=== PATIENT | female | born 1985 | race Caucasian/White ===

== ENCOUNTER 2022-02-04 18:24 | Inpatient (IN) ==
[2022-02-04] MEDS ORDERED: Azithromycin 500 MG in 0.9 % Sodium Chloride 250 ML IVPB PRN (22:11)
[2022-02-04] MEDS ORDERED: Naloxone 0.4 MG/ML INJ IVP PRN (22:11)
[2022-02-04] MEDS ORDERED: Ondansetron 4 MG/2 ML VIAL IVP PRN (22:11)
[2022-02-04] MEDS ORDERED: Penicillin G Potassium 5,000,000 UNIT in 0.9 % Sodium Chloride Mini Bag 100 ML IVPB ONE (22:11)
[2022-02-04] MEDS ORDERED: Metoclopramide 10 MG/2 ML VIAL IVP PRN (22:11)
[2022-02-04] MEDS ORDERED: Famotidine 20 MG/2 ML VIAL IVP PRN (22:11)
[2022-02-04] MEDS ORDERED: *HR* FentaNYL (PF) 100 MCG/2 ML VIAL IVP PRN (22:11)
[2022-02-04] MEDS ORDERED: hydrOXYzine pamoate 25 MG CAPSULE PO PRN (22:15)
[2022-02-04] MEDS ORDERED: *HR* FentaNYL (PF) 100 MCG/2 ML VIAL EP ONE (22:48)
[2022-02-04] MEDS ORDERED: Ropivacaine/PF 0.2% 20 ML VIAL EP ONE (22:48)
[2022-02-04] MEDS ORDERED: EPHEDrine sulfate 50 MG/10 ML VIAL IVP PRN (22:48)
[2022-02-04] MEDS ORDERED: Epidural Premix (fent/bupiv) 110 ML EP SCH (23:00)
[2022-02-04] MEDS: Ringers Solution, Lactated 1,000 ML IVC SCH (23:49)
[2022-02-05 00:13] LABS: Basophils % 0.2 %; Eosinophils % 0.2 %; Hematocrit 28.4 % (35.3-44.9); Hemoglobin 8.5 g/dL (11.5-15.4); Immature Granulocytes % 1.2 % (0-4); Lymphocytes # 1.5 K/mcL (0.6-4.6); Lymphocytes % 17.1 %; Mean Corpuscular HGB Conc 29.9 g/dL (31.6-35.5); Mean Corpuscular Hemoglobin 21.8 pg (28.0-33.3); Mean Corpuscular Volume 72.8 fL (83.0-100.0); Mean Platelet Volume 10.1 fL (9.4-12.4); Monocytes # 0.4 K/mcL (0.0-1.3); Monocytes % 4.9 %; Neutrophils # 6.9 K/mcL (1.6-8.9); Nucleated Red Blood Cells 0.4 /100 WBC (0); Platelet Count 282 K/mcL (140-400); Red Cell Distribution Width 17.8 % (11.5-14.5); Segmented Neutrophils % 76.4 %
[2022-02-05 00:22] LABS: Amphetamine Screen,Urine Negative ng/mL (Cutoff=1000); Barbiturate Screen,Urine Negative ng/mL (Cutoff=200); Benzodiazepines Screen,Urine Negative ng/mL (Cutoff=200); Cannabinoid Screen,Urine Negative ng/mL (Cutoff = 50); Cocaine Screen,Urine Negative ng/mL (Cutoff= 300); Opiate Screen,Urine Negative ng/mL (Cutoff=300); Phencyclidine Screen,Urine Negative ng/mL (Cutoff=25)
[2022-02-05 01:00] LABS: Rubella IgG Antibody POSITIVE (POSITIVE); Varicella Zoster IgG Antibody Positive
[2022-02-05] MEDS ORDERED: Oxytocin 30 UNIT/503 ML BAG IVC SCH ×2 (07:15→22:46)
[2022-02-05] MEDS: Penicillin G Potassium 2,500,000 UNIT/105 ML MLS IVPB SCH ×3 (09:08→17:56)
[2022-02-05 09:47] LABS: Hepatitis B Surface Antigen Nonreactive (Nonreactive)
[2022-02-05] MEDS: Ringers Solution, Lactated 1,000 ML IVC SCH (18:36)
[2022-02-05] MEDS ORDERED: Ibuprofen 600 MG TABLET PO ONE (20:07)
[2022-02-05] MEDS ORDERED: Benzocaine/Menthol 56 GM AEROSOL SPRAY TP PRN (22:46)
[2022-02-05] MEDS ORDERED: Lanolin 7 G OINT...G. TP PRN (22:46)
[2022-02-05] MEDS ORDERED: Measles/Mumps/Rubella Vacc 0.5 ML VIAL SQ PRN (22:46)
[2022-02-05] MEDS ORDERED: Ondansetron ODT 4 MG TAB.RAPDIS SL PRN (22:46)
[2022-02-06 07:13] LABS: Basophils % 0.2 %; Eosinophils % 0.3 %; Hematocrit 25.2 % (35.3-44.9); Hemoglobin 7.7 g/dL (11.5-15.4); Immature Granulocytes % 0.8 % (0-4); Lymphocytes # 1.5 K/mcL (0.6-4.6); Lymphocytes % 10.1 %; Mean Corpuscular HGB Conc 30.6 g/dL (31.6-35.5); Mean Platelet Volume 9.8 fL (9.4-12.4); Monocytes % 6.6 %; Neutrophils # 11.9 K/mcL (1.6-8.9); Nucleated Red Blood Cells 0.1 /100 WBC (0); Platelet Count 234 K/mcL (140-400); Red Cell Distribution Width 18.1 % (11.5-14.5); White Blood Count 14.5 K/mcL (4.3-11.1)
[2022-02-06] MEDS: Acetaminophen 325 MG TABLET PO SCH ×2 (08:16→14:53)
[2022-02-06] MEDS: Prenatal Vit/FA 1 EACH TABLET PO SCH (08:16)
[2022-02-06] MEDS: Ibuprofen 600 MG TABLET PO SCH ×3 (08:16→22:44)
[2022-02-06 10:33] LABS: HIV-1&2 Antibody & p24 Ag Nonreactive (Nonreactive)
[2022-02-07] MEDS ORDERED: hydrOXYzine pamoate 25 MG CAPSULE PO PRN (00:39)
[2022-02-07 08:11] VITALS: BP 118/81; PULSE 73; TEMP 97.8; O2SAT 99
[2022-02-07] MEDS: Acetaminophen 325 MG TABLET PO SCH (09:05)
[2022-02-07] MEDS: Prenatal Vit/FA 1 EACH TABLET PO SCH (09:06)
[2022-02-07] MEDS: Ibuprofen 600 MG TABLET PO SCH (09:06)
== END 2022-02-07 10:50 | disposition home or self-care (01) | DRG 560 ==
LOC: 1NENULAB → OBSVTOIN 18:24 → 1NENUOBS 02-06 02:39
PROVIDERS: ADMIT Advanced Practice Midwife; ATTEND Advanced Practice Midwife